=== PATIENT | female | born 1990 | race American Indian/Alaskan Native ===

== ENCOUNTER 2018-12-06 13:35 | Emergency (ER) | payer SELFPAY ==
--- NOTE | 2018-12-06 14:58 | Event Note ---
ED Screening Note Date of service: 12/06/18 Time: 14:55 ED Screening Note: 28 y/o female comes in for vaginal pain times 3 days. + vaginal discharge. LMP 11/18/18. . Surgery none. This initial assessment/diagnostic orders/clinical plan/treatment(s) is/are subject to change based on patients health status, clinical progression and re- assessment by fellow clinical providers in the ED. Further treatment and workup at subsequent clinical providers discretion. Patient/guardian urged not to elope from the ED as their condition may be serious if not clinically assessed and managed. Initial orders include:
[2018-12-06 16:29] LABS: HCG Qualitative,Urine Negative (Negative)
[2018-12-06 16:30] LABS: Bilirubin,Urine NEG (Negative); Blood,Urine NEG (Negative); Color,Urine Yellow (Yellow); Mucus,Urine FEW /HPF; Protein,Urine <15 mg/dL mg/dL (Negative); Urobilinogen,Urine < 2.0 mg/dL (<2.0)
--- NOTE | 2018-12-06 18:03 | Emergency Department Report ---
ED Female HPI - General Chief complaint: Urogenital-Female Stated complaint: VAGINAL PAIN X3DAYS Time Seen by Provider: 12/06/18 14:55 Source: patient Mode of arrival: Ambulatory Limitations: No Limitations - History of Present Illness Initial comments: Patient is a 28-year-old female presents emergency room with vaginal pain that began 3 days ago. She states she has associated vaginal discharge which she states is white. Denies any vaginal itching or vaginal lesions. She denies any urinary symptoms, abdominal pain, nausea, vomiting, diarrhea, fever. last mental cycle was 2 weeks ago. She denies any past medical history, daily medications, or allergies to medications. Denies any STD history. - Related Data Allergies Allergy/AdvReac Type Severity Reaction Status Date / Time No Known Allergies Allergy Unverified 12/06/18 13:48 ED Review of Systems ROS: Stated complaint: VAGINAL PAIN X3DAYS Other details as noted in HPI Comment: All other systems reviewed and negative ED Past Medical Hx - Past Medical History Previous Medical History?: No - Surgical History Past Surgical History?: No ED Physical Exam - General Limitations: No Limitations General appearance: alert, in no apparent distress - Head Head exam: Present: atraumatic, normocephalic - Eye Eye exam: Present: normal appearance - ENT ENT exam: Present: mucous membranes moist - Respiratory Respiratory exam: Present: normal lung sounds bilaterally. Absent: respiratory distress, wheezes, rales, rhonchi, stridor, accessory muscle use, decreased breath sounds, prolonged expiratory - Cardiovascular Cardiovascular Exam: Present: regular rate, normal rhythm, normal heart sounds. Absent: systolic murmur, diastolic murmur, rubs, gallop - GI/Abdominal GI/Abdominal exam: Present: soft, normal bowel sounds. Absent: distended, ten derness, guarding, rebound, rigid - External exam: Present: normal external exam. Absent: erythema, swelling, lesions, lacerations, ecchymosis, bleeding Speculum exam: Present: vaginal discharge (white), cervical discharge (white), other (social psychologist: LLOYD lomeli). Absent: vaginal bleeding, foreign body, tissue, laceration Bi-manual exam: Present: normal bi-manual exam. Absent: cervical motion tendernes, adnexal tenderness, adnexal mass - Back Exam Back exam: Absent: CVA tenderness (R), CVA tenderness (L) - Neurological Exam Neurological exam: Present: alert, oriented X3 - Psychiatric Psychiatric exam: Present: normal affect, normal mood - Skin Skin exam: Present: warm, dry, intact ED Course Vital Signs 12/06/18 12/06/18 19:38 19:41 Temperature 98 F Pulse Rate 84 Respiratory 16 16 Rate Blood Pressure 122/86 [Left] O2 Sat by Pulse 100 100 Oximetry ED Medical Decision Making - Lab Data Lab Results 12/06/18 Range/Units 15:40 Urine Color Yellow (Yellow) Urine Turbidity Slightly-cloudy (Clear) Urine pH 6.0 (5.0-7.0) Ur Specific [place] 1.019 (1.003-1.030) Urine Protein <15 mg/dl (Negative) mg/dL Urine Glucose (UA) Neg (Negative) mg/dL Urine Ketones Neg (Negative) mg/dL Urine Blood Neg (Negative) Urine Nitrite Neg (Negative) Ur Reducing Substances Not Reportable Urine Bilirubin Neg (Negative) Urine Ictotest Not Reportable Urine Urobilinogen < 2.0 (<2.0) mg/dL Ur Leukocyte Esterase Neg (Negative) Urine WBC (Auto) 1.0 (0.0-6.0) /HPF Urine RBC (Auto) 2.0 (0.0-6.0) /HPF U Epithel Cells (Auto) 8.0 (0-13.0) /HPF Urine Mucus Few /HPF Urine HCG, Qual Negative (Negative) - Medical Decision Making Patient is a 28-year-old female presents emergency room with vaginal pain that began 3 days ago. She states she has associated vaginal discharge which she states is white. Denies any vaginal itching or vaginal lesions. She denies any urinary symptoms, abdominal pain, nausea, vomiting, diarrhea, fever. last mental cycle was 2 weeks ago. She denies any past medical history, daily medications, or allergies to medications. Denies any STD history. vitals are normal. no abd tenderness, no CVAT, no CMT. on pelvic examination small amount of white discharge. UA without evidence of UTI. wet prep is negative. pt swabbed for G/C. discussed with pt to please follow up with an CORPORATE RISK ANALYST in the next 2-3 days. Check back with medical records in one week for results of your tests and to see if you need to be treated. please be seen by CORPORATE RISK ANALYST or health department if concerned for any other STDs. please use a non scented dove soap and do not using douching. Return to the emergency room for any new or worsening symptoms. - Differential Diagnosis UTI, vaginitis, STD, yeast, BV Critical care attestation.: If time is entered above; I have spent that time in minutes in the direct care of this critically ill patient, excluding procedure time. ED Disposition Clinical Impression: Vaginal pain, Vaginal discharge Disposition: TO HOME OR SELFCARE Is pt being admited?: No Does the pt Need Aspirin: No Condition: Stable Instructions: Vaginitis (ED) Additional Instructions: Please follow up with an CORPORATE RISK ANALYST in the next 2-3 days. Check back with medical records in one week for results of your tests and to see if you need to be treated. please be seen by CORPORATE RISK ANALYST or health department if concerned for any other STDs. please use a non scented dove soap and do not using douching. Return to the emergency room for any new or worsening symptoms. Referrals: [facility] [Primary Care Provider] - 2-3 Days [facility] [Provider Group] - 2-3 Days [facility] [Provider Group] - 2-3 Days [facility] [Provider Group] - 2-3 Days Time of Disposition: 19:16 Print Language: LIBERIAN
[2018-12-06 19:39] VITALS: BP 122/86
== END 2018-12-06 19:47 | disposition home or self-care (01) ==
LOC: ED 13:35
DX: R10.2 Pelvic and perineal pain (principal); N89.8 Other specified noninflammatory disorders of vagina
CPT/HCPCS: 81001; 81025; 87210; 87591

== ENCOUNTER 2020-11-12 11:41 | Inpatient (IN) | payer OTHER ==
[2020-11-12] MEDS ORDERED: BUTORPHANOL 2 MG/1 ML INJ IV PRN ×2 (16:16)
[2020-11-12] MEDS ORDERED: CARBOPROST TROMETHAMINE 250 MCG/1 ML INJ IM PRN (16:16)
[2020-11-12] MEDS ORDERED: METHYLERGONOVINE MALEATE 0.2 MG/ML VIAL IM PRN (16:16)
[2020-11-12] MEDS ORDERED: MINERAL OIL 30 ML ORAL LIQD PO PRN (16:16)
[2020-11-12] MEDS ORDERED: miSOPROStol 200 MCG TAB PR PRN (16:16)
[2020-11-12] MEDS ORDERED: TERBUTALINE 1 MG/1 ML INJ SUB-Q PRN (16:16)
[2020-11-12] MEDS ORDERED: LOPERAMIDE 2 MG CAP PO PRN (16:16)
[2020-11-12] MEDS ORDERED: OXYTOCIN 10 UNIT/1 ML INJ IM PRN (16:16)
[2020-11-12] MEDS ORDERED: LIDOCAINE (2%) 20 MG/1 ML VIAL 20 ML MDV INFILTRATI ONE (16:16)
[2020-11-12] MEDS ORDERED: ACETAMINOPHEN 325 MG TAB PO PRN ×2 (16:16→19:31)
[2020-11-12] MEDS ORDERED: ePHEDrine SULFATE 50 MG/1 ML INJ IV PRN (16:16)
--- NOTE | 2020-11-12 16:27 | History and Physical Report ---
History of Present Illness Date of examination: 11/12/20 Chief complaint: contractions History of present illness: 10-year-old -0-3-2 at 39 weeks (SHELLIE 11/17/2020) complicated by history of trichomonas status post treatment, history of EAB x3 presenting in active labor changing from 4 to 5 cm. chart reviewed O+, antibody negative Hemoglobin and hematocrit 12.7 and 37.1 Platelets 348 Varicella immune RPR nonreactive Urine culture negative HIV negative Gonorrhea chlamydia negative Hemoglobin B surface antigen negative GBS negative Past History Past Medical History: no pertinent history Past Surgical History: no surgical history REAL PROPERTY APPRAISER History: trichomonas Family/Genetic History: diabetes Social history: no significant social history - Obstetrical History : 6 Para: 2 Hx # Term Pregnancies: 2 Induced : 3 Number of Living Children: 2 Medications and Allergies Allergies Allergy/AdvReac Type Severity Reaction Status Date / Time No Known Allergies Allergy Unverified 12/06/18 13:48 Review of Systems All systems: negative (expect HPI) - Vital Signs Vital signs: Vital Signs Pulse Pulse Ox 102 H 96 11/12/20 12:18 11/12/20 12:18 Temp Pulse Resp BP Pulse Ox 98.1 F 98 H 18 95/52 98 11/12/20 12:20 11/12/20 15:37 11/12/20 12:20 11/12/20 15:37 11/12/20 13:43 - Physical Exam Abdomen: Positive: normal appearance, normal bowel sounds Uterus: Positive: enlarged - Obstetrical FHR: category 1 Uterine Contraction Monitor Mode: External Cervical Dilatation: 5 Uterine Contraction Pattern: Irregular Results All other labs normal. Assessment and Plan - Patient Problems (1) Active labor at term Current Visit: Yes Status: Acute Plan to address problem: Patient presenting in active labor now 5 cm. Augmentation with Pitocin as indicated. The IV pain medication as needed. Epidural available as indicated. GBS neg. Anticipate .
[2020-11-12] MEDS ORDERED: LACTATED RINGERS 1,000 ML IV SCH (16:30)
[2020-11-12] MEDS ORDERED: OXYTOCIN DRIP 30 UNITS/500 ML BAG IV SCH ×3 (17:00→20:00)
[2020-11-12 17:16] LABS: Hematocrit 35.1 % (30.3-42.9); Hemoglobin 12.1 gm/dl (10.1-14.3); Mean Corpuscular HGB Conc 34 % (30-34); Mean Corpuscular Volume 88 fl (79-97); Platelet Count 319 K/mm3 (140-440); Red Blood Count 4.01 M/mm3 (3.65-5.03); Red Cell Distribution Width 14.3 % (13.2-15.2)
[2020-11-12] MEDS ORDERED: fentaNYL 100 MCG/2 ML INJ IV ONE (18:53)
[2020-11-12] MEDS ORDERED: fentaNYL 100 MCG/2 ML INJ ONE (18:53)
[2020-11-12] MEDS ORDERED: MAGNESIUM HYDROXIDE (MOM) ORAL LIQD UDC PO PRN (19:31)
[2020-11-12] MEDS ORDERED: WITCH HAZEL/ GLYCERIN PAD TP PRN (19:31)
[2020-11-12] MEDS ORDERED: PROMETHAZINE 25 MG TAB PO PRN (19:31)
[2020-11-12] MEDS ORDERED: ONDANSETRON 4 MG/2 ML INJ IV PRN (19:31)
[2020-11-12] MEDS ORDERED: PROMETHAZINE 25 MG RECT SUPP PR PRN (19:31)
[2020-11-12] MEDS ORDERED: LANOLIN/ZINC/DIMETHICONE (LANSINOH) 7 GM TP PRN (19:31)
--- NOTE | 2020-11-12 19:36 | Procedure Note ---
OB Delivery Note - Delivery Date of Delivery: 11/12/20 Surgeon: MAXIMINO MCCULLOUGH JR Estimated blood loss: other (150cc) - Vaginal Delivery presentation: vertex Delivery position: OA Intrapartum events: none Delivery induction: oxytocin Delivery augmentation: rupture of membranes, pitocin Delivery monitor: external FHT, external uterine Route of delivery: Delivery placenta: spontaneous Episiotomy: none Delivery laceration: none Anesthesia: none Delivery comments: Status post spontaneous vaginal delivery of male at 1914. Apgars 8/9. Fundus firm below the umbilicus at the dose of Methergine x1. Weight 3200 g. Height 20 inches. EBL 150 cc. - A at 1 minute: 8 at 5 minutes: 9 Gender: Male
[2020-11-12] MEDS: IBUPROFEN 600 MG TAB PO SCH (19:46)
[2020-11-13] MEDS: IBUPROFEN 600 MG TAB PO SCH ×3 (05:19→18:18)
--- NOTE | 2020-11-13 09:11 | Discharge Summary ---
Providers - Providers Date of Admission: 11/12/20 16:16 Date of discharge: 11/14/20 Attending physician: MAXIMINO MCCULLOUGH JR, MD Primary care physician: MAXIMINO MCCULLOUGH JR, MD Hospitalization Reason for admission: active labor Delivery: Episiotomy: none Laceration: none complications: none Discharge diagnosis: IUP at term delivered baby: male Hospital course: Patient was admitted in active labor and and delivered a male fetus. Patient was meeting goals and was discharged in good condition to day 2. Condition at discharge: Good Disposition: DC-01 TO HOME OR SELFCARE - Discharge Diagnoses (1) Active labor at term Status: Acute Plan - Provider Discharge Summary Additional instructions: [] Smoking cessation referral if applicable(refer to patient education folder for contact #) [] Refer to [facility] Booklet Call your doctor immediately for: * Fever > 100.5 * Heavy vaginal bleeding ( >1 pad per hour) * Severe persistent headache * Shortness of breath * Reddened, hot, painful area to leg or breast * Drainage or odor from incision. * Keep incision clean and dry at all times and follow doctor's instructions regarding bathing/showering - Follow up plan Follow up: PRIMARY CARE, [Referring] - 6 Weeks
--- NOTE | 2020-11-13 09:13 | Progress Note ---
Assessment and Plan - Patient Problems (1) Active labor at term Current Visit: Yes Status: Acute Plan to address problem: Doing well day 1. Meeting day goals. Anticipate discharge in 24 hours. Subjective - Subjective Date of service: 11/13/20 Principal diagnosis: PPD1 Interval history: Patient reports that she is feeling well. Meeting goals. Baby doing well in the room Patient reports: appetite normal, voiding normally, pain well controlled, flatus [place]: doing well Objective - Vital Signs Latest vital signs: Vital Signs Temp Pulse Resp BP BP Pulse Ox 11/13/20 08:03 97.4 F L 82 91/59 97 11/13/20 04:28 97.8 F 83 20 100/62 100 11/13/20 00:27 98.1 F 97 H 20 108/58 100 11/12/20 20:34 101 H 111/67 11/12/20 20:19 90 95/58 11/12/20 20:04 95 H 91/58 11/12/20 19:49 102 H 111/61 11/12/20 19:35 109 H 111/66 11/12/20 19:25 98.9 F 11/12/20 19:20 102 H 98/66 11/12/20 18:06 96 H 119/74 11/12/20 17:00 98.0 F 11/12/20 15:37 98 H 95/52 11/12/20 15:00 98.0 F 11/12/20 13:43 104 H 98 11/12/20 13:38 95 H 97 11/12/20 13:33 95 H 98 11/12/20 13:28 90 98 11/12/20 13:23 103 H 95 11/12/20 13:18 96 H 98 11/12/20 13:13 98 H 97 11/12/20 13:08 99 H 98 11/12/20 13:03 99 H 97 11/12/20 12:58 103 H 98 11/12/20 12:53 102 H 97 11/12/20 12:48 101 H 97 11/12/20 12:43 93 H 98 11/12/20 12:38 101 H 98 11/12/20 12:33 107 H 97 11/12/20 12:28 108 H 96 11/12/20 12:23 102 H 96 11/12/20 12:20 98.1 F 109 H 18 114/71 96 11/12/20 12:19 108 H 114/71 11/12/20 12:18 102 H 96 Intake and Output 11/12/20 11/13/20 11/13/20 23:59 07:59 15:59 Intake Total 1.133 720 Output Total 1000 Balance 1.133 -280 Intake: IV 1.133 PITOCin/NS 30 UNIT/500ML 1.133 30 units In 500 ml @ 2 mls/hr IV TITR LEIDY Rx#: [id number] Oral 720 Output: Urine 1000 Void 1000 Other: Total, Intake Amount 240 Total, Output Amount 400 # Voids Void 1 1 1 - Exam Abdomen: Present: normal appearance, normal bowel sounds Uterus: Present: firm - Labs Labs: Abnormal lab results 11/12/20 Range/Units 13:15 WBC 11.4 H (4.5-11.0) K/mm3
[2020-11-13 10:29] LABS: Hematocrit 37.5 % (30.3-42.9); Hemoglobin 12.6 gm/dl (10.1-14.3)
[2020-11-13] MEDS: oxyCODONE /ACETAMINOPHEN 5-325MG TAB PO PRN ×2 (14:13→20:24)
[2020-11-13] MEDS: diphenhydrAMINE 25 MG CAP PO PRN ×2 (17:41→23:37)
[2020-11-14] MEDS: IBUPROFEN 600 MG TAB PO SCH ×2 (06:39→12:57)
[2020-11-14] MEDS ORDERED: medroxyPROGESTERone ACETATE 150 MG/ML SYRINGE IM ONE (13:40)
[2020-11-14 14:44] VITALS: BP 110/69
== END 2020-11-14 14:30 | disposition home or self-care (01) | DRG 775 ==
LOC: TRG 11:41 → APU 11:42 → LD 13:50 → TRG 16:16 → OB 20:54
PROVIDERS: ADMIT Obstetrics & Gynecology; ATTEND Obstetrics & Gynecology
PROC: 10E0XZZ Delivery of Products of Conception, External Approach (ICD-10-PCS; principal; 2020-11-12)
PROC: 3E033VJ Introduction of Other Hormone into Peripheral Vein, Percutaneous Approach (ICD-10-PCS; 2020-11-12)
DX: O80 Encounter for full-term uncomplicated delivery (principal); Z3A.39 39 weeks gestation of pregnancy; Z37.0 Single live birth; Z83.3 Family history of diabetes mellitus; Z20.822 Contact with and (suspected) exposure to COVID-19; Z82.49 Family history of ischemic heart disease and other diseases of the circulatory system
CPT/HCPCS: 36415; 59025; 85014; 85018; 85027; 86850; 86900; 86901; G0378; A6250; J0595; J1050; J2210; J2590; J3010; J7120; U0003